=== PATIENT | female | born 1985 | race African-American/Black ===

== ENCOUNTER 2018-05-14 07:38 | Outpatient (CLI) | payer MEDICARE ==
--- NOTE | 2018-05-14 12:25 | MRI ---
BRAIN MRI WITH AND WITHOUT COTNRAST: DATE: 05/14/18. COMPARISON: 06/13/15. HISTORY: Relapsing-remitting multiple sclerosis. TECHNIQUE: Multiplanar, multisequence MR imaging of the brain is provided without and without contrast. FINDINGS: The diffusion weighted imaging demonstrates no evidence for acute infarction. A stable mild diffuse cerebral volume loss. Imaged paranasal sinuses and mastoid air cells demonstrate normal signal inten sity. Arterial flow voids at the axial level of the skull appear unremarkable on the T2 weighted sherron ging. There is extensive abnormal increased multifocal T2 signal intensity within the periventricular, deep , and subcortical white matter, consistent with the provided history of multiple sclerosis. In addit ion, there are foci of increased T2 and FLAIR signal intensity within the mid brain, right greater th an left, throughout the jeffrey, and involving the middle cerebellar peduncle/bronchium pontus bilateral ly, left greater than right. There is increased T2-FLAIR signal within the periventricular white mat ter encircling the majority of the 4th ventricle. When compared to the 2015 examination, there has b een no significant interval change. There is stable volume loss involving the corpus callosum, particularly the mid and posterior body as well as the splenium with associated increased FLAIR signal, also a stable finding. Regional bone marrow signal intensity is within normal limits. Postcontrast imaging demonstrates a f ocal area of enhancement within the periventricular/deep white matter posterior to the atrium of the right lateral ventricle. There is also a subtle focus of enhancement within the deep whit matter of the posterior left frontal lobe measuring 3 mm on image 17. There is a faint area of enhancement inv olving the periventricular white matter lateral to the left atrium. IMPRESSION: Extensive abnormal T2/FLAIR signal intensity within the white matter consistent with the patient's hi story of multiple sclerosis. There are multiple foci of enhancement suggesting active demyelination as detailed above. POS: [facility]
--- NOTE | 2018-05-14 12:43 | MRI ---
MRI OF THE CERVICAL SPINE WITH AND WITHOUT CONTRAST: DATE: 05/14/18. COMPARISON: 01/23/17. HISTORY: Relapsing remitting multiple sclerosis. TECHNIQUE: Multiplanar multisequence MR imaging of the cervical spine with and without contrast. FINDINGS: Motion artifact significantly limits detailed assessment. The STIR imaging demonstrates no focal are a of osseous marrow edema. There is straightening of the normal cervical lordosis. No prevertebral soft tissue swelling. No an terolisthesis retrolisthesis noted. No significant central canal stenosis or neural foraminal stenosis is evident within the cervical spi ne on this examination. Please note that detailed assessment is limited secondary to motion. Detailed assessment for focal cord lesions is limited as well. On today's examination, there is a T2 hyperintense lesion to the left of midline involving the upper cervical cord at the axial level of t he skull base measuring 6 mm, which appears stable. There is a stable lesion within the ventral aspect of the cord at the axial level of the C1 vertebral body. There is a stable T2 hyperintense midline posterior cord lesion at C2-3. Below this axial level, the degree of motion limits assessment for additional cord lesion. The prior examination demonstrated n umerous additional lesions within the dorsal aspect of the cord. The postcontrast imaging demonstrates no definitive enhancing cord lesion. IMPRESSION: Motion limited examination demonstrates numerous foci of increased T2 signal within the cervical cord , consistent with the provided history of multiple sclerosis. No obvious new cord lesions are seen a nd no definite enhancing cord lesion is seen. POS: [facility]
--- NOTE | 2018-05-14 12:53 | MRI ---
MRI THORACIC SPINE WITH AND WITHOUT CONTRAST: 05/14/2018 HISTORY: Multiple sclerosis. COMPARISON: 02/26/2017 TECHNIQUE: Multiplanar, multisequence MR imaging of the thoracic spine is provided with and without contrast. FINDINGS: The sagittal STIR imaging demonstrates no focal area of osseous marrow edema. Thoracic vertebral bod y height and alignment appear within normal limits. No prevertebral soft tissue swelling. Motion limits detailed assessment for central canal or neural foraminal stenosis within the thoracic spine. There is no evidence for significant central canal or neural foraminal stenosis within the th oracic spine at any level. There is a posterior midline area of increased signal intensity within the thoracic cord, at the T1-T 2 level, grossly unchanged. There is increased T2 signal within the ventral aspect of the cord, at T 3-T4, stable as well. Posterior T2 signal hyperintensity within the cord again noted at the T5-T6 le jhonathan. No definite new cord signal abnormality noted. Post contrast imaging demonstrates no abnormal enhancement. IMPRESSION: Motion limited examination demonstrating scattered foci of increased T2 signal intensity within the t horacic cord, consistent with demyelinating disease. There has been no definite interval change when compared to the 2017 examination and no enhancing lesions are seen within the thoracic cord to sugge st the presence of active demyelination. POS: [facility]
== END 2018-05-14 07:39 | disposition home or self-care (01) ==
LOC: BICMRI 07:38
PROVIDERS: ATTEND Psychiatry & Neurology Neurology
DX: G35 Multiple sclerosis (principal)
CPT/HCPCS: 70553; 72156; 72157